=== PATIENT | male | born 1965 | race Caucasian/White ===

== ENCOUNTER 2018-05-18 14:34 | Emergency (ER) | payer OTHER | END 2018-05-18 16:26 | disposition home or self-care (01) | LOC: M ED 14:34 | DX: S56.212A Strain of other flexor muscle, fascia and tendon at forearm level, left arm, initial encounter (principal); X50.0XXD Overexertion from strenuous movement or load, subsequent encounter; Y92.096 Garden or yard of other non-institutional residence as the place of occurrence of the external cause; I10 Essential (primary) hypertension; K21.9 Gastro-esophageal reflux disease without esophagitis; E03.9 Hypothyroidism, unspecified; Z87.891 Personal history of nicotine dependence; Z79.899 Other long term (current) drug therapy | CPT/HCPCS: 73080 ==

== ENCOUNTER 2018-07-14 23:23 | Emergency (ER) | payer OTHER ==
[2018-07-15] MEDS: NS 1,000 ML IV (01:11)
[2018-07-15] MEDS: KETOROLAC 30 MG/ML VIAL (J1885) IV (01:13)
[2018-07-15] MEDS: diphenhydrAMINE INJ 50MG/ML VIAL (J1200) IV (01:13)
[2018-07-15] MEDS: METOCLOPRAMIDE INJ 10MG/2ML VIAL (J2765) IV (01:15)
[2018-07-15 01:25] LABS: CSF RBC < 2 10^3/uL (<2)
[2018-07-15 01:26] LABS: APPEARANCE, CSF CLEAR (CLEAR); COLOR, CSF COLORLESS (COLORLESS); CSF DIFF IF INDICATED? NO (NO); CSF RBC < 2 10^3/uL (<2); CSF TUBE# CELL CNT TUBE 1; CSF WBC 2 /uL (0-10)
[2018-07-15 01:27] LABS: APPEARANCE, CSF CLEAR (CLEAR); COLOR, CSF COLORLESS (COLORLESS); CSF DIFF IF INDICATED? NO (NO); CSF TUBE# CELL CNT TUBE 4; CSF WBC 1 /uL (0-10)
[2018-07-15 01:33] LABS: CSF TUBE# GLU TUBE 2; CSF TUBE# TP TUBE 2; GLUCOSE CSF 65 MG/DL (40-75); TOTAL PROTEIN,CSF 60 MG/DL (15-45)
== END 2018-07-15 02:16 | disposition home or self-care (01) ==
LOC: M ED 23:23
DX: G44.82 Headache associated with sexual activity (principal); I10 Essential (primary) hypertension; E78.00 Pure hypercholesterolemia, unspecified; G47.33 Obstructive sleep apnea (adult) (pediatric); Z79.899 Other long term (current) drug therapy
CPT/HCPCS: J1200

== ENCOUNTER 2019-03-16 17:03 | Emergency (ER) | payer OTHER ==
[~2019-03-16] VITALS: Ht 175.3 cm; Wt 91.2 kg
[~2019-03-16 17:03] MED LIST: B COTAB3 PO; FISH7.5C PO; GEMF600T5 PO; GLUCPOW24 PO; HYDR12.55 PO; LEVO88TA3 PO; LOSA50TA88 PO; NIAS500T23 PO; OMEP20CA3 PO
[2019-03-16] MEDS ORDERED: OMEP40CA2 PO (18:05)
[2019-03-16] MEDS ORDERED: LEVO112T2 PO (18:05)
[2019-03-16] MEDS ORDERED: FLUORESCEIN OPHTH 1 MG STRIP OD ONE (18:30)
[2019-03-16] MEDS ORDERED: TETRACAINE 0.5% OPHTH SOLN 4ML OD ONE (18:30)
[2019-03-16] MEDS ORDERED: ERYT1OIN26 OD (18:39)
[2019-03-16] MEDS ORDERED: ERYTHROMYCIN OPHTH OINT OD ONE (18:45)
[2019-03-16 18:57] VITALS: BP 137/75
== END 2019-03-16 18:58 | disposition home or self-care (01) ==
LOC: M ED 17:03
DX: H00.022 Hordeolum internum right lower eyelid (principal); E03.9 Hypothyroidism, unspecified; Z79.899 Other long term (current) drug therapy

== ENCOUNTER 2019-11-30 18:59 | Emergency (ER) | payer OTHER ==
[~2019-11-30] VITALS: Ht 175.3 cm; Wt 86.4 kg
[~2019-11-30 18:59] MED LIST changes: +ERYT1OIN26 OD; +LEVO112T2 PO; +OMEP1CAP73 PO; -OMEP20CA3 PO; +OMEP40CA97 PO
[2019-11-30] MEDS ORDERED: CELE100C PO (19:11)
[2019-11-30 20:05] LABS: INFLUENZA A AMPLIFICATION POSITIVE (NEGATIVE); INFLUENZA B AMPLIFICATION NEGATIVE (NEGATIVE)
[2019-11-30 20:12] VITALS: BP 133/72
[2019-11-30] MEDS ORDERED: ACETAMINOPHEN 500 MG TAB PO ONE (20:15)
== END 2019-11-30 20:40 | disposition home or self-care (01) ==
LOC: M ED 18:59
DX: J10.1 Influenza due to other identified influenza virus with other respiratory manifestations (principal); K21.9 Gastro-esophageal reflux disease without esophagitis; R51 Headache; E03.9 Hypothyroidism, unspecified; E78.5 Hyperlipidemia, unspecified; G47.33 Obstructive sleep apnea (adult) (pediatric)

== ENCOUNTER → 2021-02-12 | Outpatient (CLI) | payer MEDICARE ==
[~2021-02-12] MED LIST changes: +CELE100C PO; -ERYT1OIN26 OD; +ERYT5OIN25 OD; +FAMO40TA3 PO; +FLUOCRE EX; +LEVO137T2 PO; +PRAV10TA4 PO
== END ==
LOC: M LABSMTC 09:00
PROVIDERS: ATTEND Anesthesiology
DX: Z01.818 Encounter for other preprocedural examination (principal); Z11.52 Encounter for screening for COVID-19

== ENCOUNTER 2021-02-17 09:20 | Day surgery (SDC) | payer OTHER ==
[~2021-02-17] VITALS: Ht 175.3 cm; Wt 92.4 kg
[~2021-02-17 09:20] MED LIST changes: +NS 1,000 ML IV ONE
[2021-02-17] MEDS ORDERED: LIDOCAINE 2% 100MG/5ML SDV (FOR ANES.) As Ordered ONE (11:14)
[2021-02-17] MEDS ORDERED: propofoL 200 MG/20 ML VIAL As Ordered ONE (11:14)
[2021-02-17] MEDS ORDERED: fentaNYL 100 MCG/2 ML INJECTION (J3010) As Ordered ONE (11:14)
--- NOTE | 2021-02-17 11:27 | ROOR ---
Patient Name: Clem Ibrahim Procedure Date: 02/17/2021 11:07 AM Date of : 1965 Age: 56 Room: [facility] Gender: Male Note Status: Finalized Procedure: Upper GI endoscopy Indications: Suspected esophageal reflux Providers: Jhonatan Rasmussen Jr, MD Referring MD: Williams Martin Requesting Provider: Medicines: Propofol per Anesthesia Complications: No immediate complications. Procedure: Pre-Anesthesia Assessment: - Prior to the procedure, a History and Physical was performed, and patient medications and allergies were reviewed. The patient is competent. The risks and benefits of the procedure and the sedation options and risks were discussed with the patient. All questions were answered and informed consent was obtained. Patient identification and proposed procedure were verified by the physician and the nurse in the pre-procedure area and in the procedure room. Mental Status Examination: alert and oriented. Airway Examination: normal oropharyngeal airway and neck mobility. Respiratory Examination: clear to auscultation. CV Examination: normal. ASA Grade Assessment: II - A patient with mild systemic disease. After reviewing the risks and benefits, the patient was deemed in satisfactory condition to undergo the procedure. The anesthesia plan was to use moderate sedation / analgesia (conscious sedation). Immediately prior to administration of medications, the patient was re-assessed for adequacy to receive sedatives. The heart rate, respiratory rate, oxygen saturations, blood pressure, adequacy of pulmonary ventilation, and response to care were monitored throughout the procedure. The physical status of the patient was re-assessed after the procedure. The Endoscope was introduced through the mouth, and advanced to the second part of duodenum. The upper GI endoscopy was accomplished without difficulty. The patient tolerated the procedure well. Findings: The upper third of the esophagus, middle third of the esophagus and lower third of the esophagus were normal. The Z-line was irregular and was found at the gastroesophageal junction. Biopsies were taken with a cold forceps for histology. The gastroesophageal junction, cardia, gastric fundus, gastric body, prepyloric region of the stomach and pylorus were normal. Localized mildly congested mucosa was found in the gastric antrum. Biopsies were taken with a cold forceps for histology. The duodenal bulb, first portion of the duodenum and second portion of the duodenum were normal. Impression: - Normal upper third of esophagus, middle third of esophagus and lower third of esophagus. - Z-line irregular, at the gastroesophageal junction. Biopsied. - Normal gastroesophageal junction, cardia, gastric fundus, gastric body, prepyloric region of the stomach and pylorus. - Congestive gastropathy. Biopsied. - Normal duodenal bulb, first portion of the duodenum and second portion of the duodenum. Recommendation: - Discharge patient to home (ambulatory). - Return to my office at appointment to be scheduled. Procedure Code(s): --- Professional --- 98941, Esophagogastroduodenoscopy, flexible, transoral; with biopsy, single or multiple Diagnosis Code(s): --- Professional --- K22.8, Other specified diseases of esophagus K31.89, Other diseases of stomach and duodenum CPT copyright 2019 [employer]. All rights reserved. The codes documented in this report are preliminary and upon coil winding machines set up mechanic review may be revised to meet current compliance requirements. Jhonatan Rasmussen MD Jhonatan Rasmussen Jr, MD 02/17/2021 11:26:57 AM Electronically signed by Jhonatan Rasmussen Jr, MD Number of Addenda: 0 Note Initiated On: 02/17/2021 11:07 AM Estimated Blood Loss: Estimated blood loss: none.
[2021-02-17 11:45] VITALS: BP 118/77
== END 2021-02-17 11:50 | disposition home or self-care (01) ==
LOC: M OPP 09:20
PROVIDERS: ATTEND Surgery
DX: K22.8 Other specified diseases of esophagus (principal); K31.89 Other diseases of stomach and duodenum; I10 Essential (primary) hypertension; E03.9 Hypothyroidism, unspecified; G47.30 Sleep apnea, unspecified; Z79.899 Other long term (current) drug therapy; Z88.8 Allergy status to other drugs, medicaments and biological substances; Z87.891 Personal history of nicotine dependence
CPT/HCPCS: 43239; 88305; J3010

== ENCOUNTER → 2021-05-24 | Outpatient (CLI) | payer OTHER ==
[~2021-05-24] MED LIST changes: -NS 1,000 ML IV ONE; +OMEP40CA4 PO; -OMEP40CA97 PO; +PROHANCE 279.3MG/ML 15ML VIAL As Ordered ONE; +PROHANCE 279.3MG/ML 5ML VIAL As Ordered ONE
--- NOTE | 2021-05-24 20:00 | REPVR ---
PROCEDURE INFORMATION: Exam: MR Lumbar Spine Without and With Contrast Exam date and time: 05/24/2021 7:14 PM Age: 56 years old Clinical indication: Low back pain TECHNIQUE: Imaging protocol: Multiplanar magnetic resonance images of the lumbar spine without and with intravenous contrast. Contrast material: PROHANCE; Contrast volume: 18 ml; Contrast route: INTRAVENOUS (IV); COMPARISON: No relevant prior studies available. FINDINGS: Vertebral body height and AP alignment is preserved. There is multilevel Schmorl's node formation. Multilevel disc desiccation. There is degenerative endplate signal. No evidence of discitis/osteomyelitis. Conus medullaris terminates L1. No epidural fluid collection. No pathologic intrathecal enhancement. L1-L2: Minimal disc bulge without significant central or foraminal stenosis. L2-L3: Mild disc bulge and mild bilateral facet joint arthropathy. No significant central or foraminal stenosis. L3-L4: Mild disc bulge and mild bilateral facet joint arthropathy. No significant central or foraminal stenosis. L4-L5: Mild disc bulge and mild bilateral facet joint arthropathy. No significant central or foraminal stenosis. L5-S1: [id number] bilateral facet joint arthropathy without significant central or foraminal compromise. IMPRESSION: 1. No acute abnormality involving the lumbar spine. 2. Degenerative findings as above without significant central canal compromise. Electronically signed by: Andrew Lanza On 05/24/2021 20:00:00 PM
== END ==
LOC: M RAD 17:04
PROVIDERS: ATTEND Nurse Practitioner Family
DX: M54.5 Low back pain (principal)
CPT/HCPCS: 72158; A9576

== ENCOUNTER → 2021-07-16 | Outpatient (CLI) | payer OTHER ==
[~2021-07-16] MED LIST changes: +LOPI600T PO; -PROHANCE 279.3MG/ML 15ML VIAL As Ordered ONE; -PROHANCE 279.3MG/ML 5ML VIAL As Ordered ONE; +VITATAB73 PO
== END ==
LOC: M LABSMTC 09:21
PROVIDERS: ATTEND Anesthesiology
DX: Z01.812 Encounter for preprocedural laboratory examination (principal); Z20.822 Contact with and (suspected) exposure to COVID-19

== ENCOUNTER 2021-07-21 09:57 | Day surgery (SDC) | payer OTHER ==
[~2021-07-21] VITALS: Ht 175.3 cm; Wt 93.6 kg
[~2021-07-21 09:57] MED LIST changes: +LIDOCAINE 2% 100MG/5ML SDV (FOR ANES.) As Ordered ONE; +NS 1,000 ML IV ONE; +propofoL 200 MG/20 ML VIAL As Ordered ONE
--- OUTSIDE RECORDS SUMMARY | 2021-07-21 10:01 | CCD ---
Author Author [facility] Organization [facility] Address Unknown Phone Unavailable Care Team Providers Care Library Technology Instructor Name Role Phone Crook, L Mel RPA Unavailable Unavailable Crook, L Mel RPA Unavailable Unavailable Crook, L Mel RPA Unavailable Unavailable Crook, L Mel RPA Unavailable Unavailable Crook, L Mel RPA Unavailable Unavailable Crook, L Mel RPA Unavailable Unavailable Crook, L Mel RPA Unavailable Unavailable Crook, L Mel RPA Unavailable Unavailable Crook, L Mel RPA Unavailable Unavailable Crook, L Mel RPA Unavailable Unavailable Crook, L Mel RPA Unavailable Unavailable Crook, L Mel RPA Unavailable Unavailable Crook, L Mel RPA Unavailable Unavailable Crook, L Mel RPA Unavailable Unavailable Crook, L Mel RPA Unavailable Unavailable Crook, L Mel RPA Unavailable Unavailable Crook, L Mel RPA Unavailable Unavailable Crook, L Mel RPA Unavailable Unavailable Crook, L Mel RPA Unavailable Unavailable Crook, L Mel RPA Unavailable Unavailable Crook, L Mel RPA Unavailable Unavailable Crook, L Mel RPA Unavailable Unavailable Crook, L Mel RPA Unavailable Unavailable Crook, L Mel RPA Unavailable Unavailable Crook, L Mel RPA Unavailable Unavailable Crook, L Mel RPA Unavailable Unavailable Crook, L Mel RPA Unavailable Unavailable Crook, L Mel RPA Unavailable Unavailable Crook, L Mel RPA Unavailable Unavailable Crook, L Mel RPA Unavailable Unavailable Crook, L Mel RPA Unavailable Unavailable Crook, L Mel RPA Unavailable Unavailable Bart Rasmussen JR, MD Unavailable Unavailable Bart Rasmussen JR, MD Unavailable Unavailable Bart Rasmussen JR, MD Unavailable Unavailable Bart Rasmussen JR, MD Unavailable Unavailable Bart Rasmussen JR, MD Unavailable Unavailable Bart Rasmussen JR, MD Unavailable Unavailable Bart Rasmussen JR, MD Unavailable Unavailable Bart Rasmussen JR, MD Unavailable Unavailable Bart Rasmussen JR, MD Unavailable Unavailable Bart Rasmussen JR, MD Unavailable Unavailable Bart Rasmussen JR, MD Unavailable Unavailable Bart Rasmussen JR, MD Unavailable Unavailable Bart Rasmussen JR, MD Unavailable Unavailable Bart Rasmussen JR, MD Unavailable Unavailable Bart Rasmussen JR, MD Unavailable Unavailable Bart Rasmussen JR, MD Unavailable Unavailable Bart Rasmussen JR, MD Unavailable Unavailable Bart Rasmussen JR, MD Unavailable Unavailable Bart Rasmussen JR, MD Unavailable Unavailable Bart Rasmussen JR, MD Unavailable Unavailable Bart Rasmussen JR, MD Unavailable Unavailable Bart Rasmussen JR, MD Unavailable Unavailable Bart Rasmussen JR, MD Unavailable Unavailable Bart Rasmussen JR, MD Unavailable Unavailable Bart Rasmussen JR, MD Unavailable Unavailable Bart Rasmussen JR, MD Unavailable Unavailable Bart Rasmussen JR, MD Unavailable Unavailable Bart Rasmussen JR, MD Unavailable Unavailable Bart Rasmussen JR, MD Unavailable Unavailable Bart Rasmussen JR, MD Unavailable Unavailable Bart Rasmussen JR, MD Unavailable Unavailable Bart Rasmussen JR, MD Unavailable Unavailable Bart Rasmussen JR, MD Unavailable Unavailable Bart Rasmussen JR, MD Unavailable Unavailable Bart Rasmussen JR, MD Unavailable Unavailable Bart Rasmussen JR, MD Unavailable Unavailable Bart Rasmussen JR, MD Unavailable Unavailable Bart Rasmussen JR, MD Unavailable Unavailable Bart Rasmussen JR, MD Unavailable Unavailable Bart Rasmussen JR, MD Unavailable Unavailable Bart Rasmussen JR, MD Unavailable Unavailable Bart Rasmussen JR, MD Unavailable Unavailable Bart Rasmussen JR, MD Unavailable Unavailable Bart Rasmussen JR, MD Unavailable Unavailable Bart Rasmussen JR, MD Unavailable Unavailable Bart Rasmussen JR, MD Unavailable Unavailable Bart Rasmussen JR, MD Unavailable Unavailable Bart Rasmussen JR, MD Unavailable Unavailable Bart Rasmussen JR, MD Unavailable Unavailable Bart Rasmussen JR, MD Unavailable Unavailable Bart Rasmussen JR, MD Unavailable Unavailable Bart Rasmussen JR, MD Unavailable Unavailable Bart Rasmussen JR, MD Unavailable Unavailable Bart Rasmussen JR, MD Unavailable Unavailable Re-disclosure Warning The records that you are about to access may contain information from federally-assisted alcohol or drug abuse programs. If such information is present, then the following federally mandated warning applies: This information has been disclosed to you from records protected by federal confidentiality rules (42 CFR part 2). The federal rules prohibit you from making any further disclosure of this information unless further disclosure is expressly permitted by the written consent of the person to whom it pertains or as otherwise permitted by 42 CFR part 2. A general authorization for the release of medical or other information is NOT sufficient for this purpose. The Federal rules restrict any use of the information to criminally investigate or prosecute any alcohol or drug abuse patient.The records that you are about to access may contain highly sensitive health information, the redisclosure of which is protected by Article 27-F of the [facility] Public Health law. If you continue you may have access to information: Regarding HIV / AIDS; Provided by facilities licensed or operated by the [facility] Office of Mental Health; or Provided by the [facility] Office for People With Developmental Disabilities. If such information is present, then the following [facility] mandated warning applies: This information has been disclosed to you from confidential records which are protected by state law. State law prohibits you from making any further disclosure of this information without the specific written consent of the person to whom it pertains, or as otherwise permitted by law. Any unauthorized further disclosure in violation of state law may result in a fine or chcf sentence or both. A general authorization for the release of medical or other information is NOT sufficient authorization for further disc losure. Encounters Encounter Providers Location Date Indications Data Source(s ) Outpatient Attender: Mel Frank/Zulma/Brennan/R eindl 03/03/2021 11:15:00 AM EDT [facility] ([facility]) Outpatient Attender: Jhonatan Frank/Zulma/Brennan/Srinivasa dl 12/29/2020 01:00:00 PM EDT [facility] ([facility]) Medications Medication Brand Name Start Date Product Form Dose Route Admi nistrative Instructions Pharmacy Instructions Status Indications Reaction Description Data Source(s) Suprep Bowel Prep Kit Suprep Bowel Prep Kit 06/09/2021 12:00:00 AM EDT active [facility] ([facility] ) Bisacodyl 5 MG Delayed Release Oral Tablet [Dulcolax] Dulcol ax 06/09/2021 12:00:00 AM EDT ORAL active [facility] ([facility]) Omeprazole 40 MG Delayed Release Oral Capsule Omeprazole 12/29/2020 12:00:00 AM EDT ORAL completed [facility] ([facility]) Famotidine 40 MG Oral Tablet [Pepcid] Pepcid 12/29/2020 12:00:00 AM EDT ORAL completed [facility] ([facility]) Insurance Providers Payer name Policy type / Coverage type Policy ID Covered democrat ID Covered democrat's relationship to carias Policy Carias Plan Information 'S ADMINISTRATION [id number] SP [id number] [employer] [place] [employer] [id number] SP [id number] [place] [employer] [employer] [id number] SP [id number] [address] [facility] [id number] SP [id number] [employer] [id number] S [id number] [facility] [id number] SP [id number] [facility] ACTIVE DUTY [id number] SP [id number] Problems, Conditions, and Diagnoses No Information Surgeries/Procedures Procedure Description Date Indications Data Source(s) OFFICE OUTPATIENT VISIT 15 MINUTES 03/03/2021 12:00:00 AM EDT [facility] Endoscopy Upper GI Biopsy 2021 12:00:00 AM EDT [facility] ([facility]) OFFICE OUTPATIENT NEW 45 MINUTES 12/29/2020 12:00:00 A EDT [facility]) Results ID Date Data Source [id number] 07/16/2021 09:15:00 AM EDT [facility] Name Value Range Interpretation Code Description Data Venecia rce(s) Supporting Document(s) SARS-CoV-2 (COVID-19) RNA [Presence] in Respiratory specimen by [facility] with probe detection Not Detected [facility] This lab was ordered by [facility] and reported by [employer] ID Date Data Source [id number] 2021 11:20:00 AM EDT [facility] ) Name Value Range Interpretation Code Description Data Venecia rce(s) Supporting Document(s) Surgical pathology study Laboratory test result [facility] ([facility], ) <content>FINAL DIAGNOSIS</content>
< content></content>
<content>A - Stomach, biopsy:</content>
<content>Gastric mucosa with no significant pathologic changes.</content>
<content>No evidence for H. pylori-like organisms on H&E stain.</content>
<content></content>
<content>B - GE junction, biopsy:</content>
<content>Junctional mucosa with intestinal metaplasia and chronic</content>
<content>inflammation.</content>
<content>No evidence for dysplasia.</content>
<content>02/18/2021 - 1239</content>
<content> </content>
<content>CLINICAL DIAGNOSIS</content>
<content></content>
<content>Reflux</content>
<c ontent>2021 - 1517</content>
<content></content>
<content>GROSS DIAGNOSIS</content>
<content></content>
<content>A - Received in formalin labeled "gastric biopsy" and consists of one</content>
<content> fragment of quiroz tissue 0.3 x 0.3 x 0.2 cm. All in one.</content>
<content></content>
<content>B - Received in formalin labeled "GE junction biopsy" and consists of</content>
<content>three fragments of quiroz tissue 0.3 x 0.3 x 0.3 cm. in aggregate. All in</content>
<content>one.</content>
<content>- SV</content>
<content>02/18/2021 - 1240</content>
<content></content>
<content>Signed EDYTA MAURER MD 02/18/2021 1333</content>
<content></content> ID Date Data Source [id number] 02/12/2021 09:05:00 AM EDT [facility] Name Value Range Interpretation Code Description Data Venecia rce(s) Supporting Document(s) SARS-CoV-2 (COVID-19) RNA [Presence] in Respiratory specimen by [facility] with probe detection Not Detected [facility] This lab was ordered by [facility] and reported by [employer]. Procedure Social History No Information Vital Signs ID Date Data Source UNK Name Value Range Interpretation Code Description Data Source(s) Systolic blood pressure 128 mm[Hg] 128 mm[Hg] [facility] Diastolic blood pressure 78 mm[Hg] 78 mm[Hg] [facility] ([facility]) Body height 69 [in_i] 69 [in_i] [facility] ([facility]) 5'9" Body weight 205.00 [lb_av] 205.00 [lb_av] [facility] ([facility]) Body mass index (BMI) [Ratio] 30.3 kg/m2 30.3 k g/m2 [facility] ([facility]) [place] body weight 160 [lb_av] 160 [lb_av] [facility] ([facility]) Body weight 92.988 kg 92.988 kg [facility] ([facility]) Body surface area Derived from formula 2.09 m2 2.09 m2 [facility] ([facility]) Body weight 94.065 kg 94.065 kg [facility] ([facility]) Body surface area Derived from formula 2.10 m2 2.10 m2 [facility] ([facility]) Body height 69 [in_i] 69 [in_i] [facility] ([facility]) 5'9" Body weight 207.38 [lb_av] 207.38 [lb_av] [facility] ([facility]) Body mass index (BMI) [Ratio] 30.6 kg/m2 30.6 k g/m2 [facility] ([facility]) [place] body weight 160 [lb_av] 160 [lb_av] [facility] ([facility]) Body weight 94.065 kg 94.065 kg [facility] ([facility]) Body surface area Derived from formula 2.10 m2 2.10 m2 [facility] ([facility]) Diastolic blood pressure 78 mm[Hg] 78 mm[Hg] [facility] ([facility]) Systolic blood pressure 124 mm[Hg] 124 mm[Hg] M [facility] ([facility]) Heart rate 62 /min 62 /min [facility] ([facility]) Body height 69 [in_i] 69 [in_i] [facility] ([facility]) 5'9" Body weight 207.38 [lb_av] 207.38 [lb_av] [facility] ([facility]) Body mass index (BMI) [Ratio] 30.6 kg/m2 30.6 k g/m2 [facility] ([facility]) [place] body weight 160 [lb_av] 160 [lb_av] [facility] ([facility]) Body surface area Derived from formula 2.10 m2 2.10 m2 [facility] ([facility]) Systolic blood pressure 180 mm[Hg] 180 mm[Hg] [facility] Diastolic blood pressure 89 mm[Hg] 89 mm[Hg] [facility] ([facility]) Body height 69 [in_i] 69 [in_i] [facility] ([facility]) 5'9" Body weight 208.12 [lb_av] 208.12 [lb_av] [facility] ([facility]) Body mass index (BMI) [Ratio] 30.7 kg/m2 30.7 k g/m2 [facility] ([facility]) [place] body weight 160 [lb_av] 160 [lb_av] [facility] ([facility]) Body weight 94.406 kg 94.406 kg [facility] ([facility])
--- OUTSIDE RECORDS SUMMARY | 2021-07-21 10:01 | CCD | Continuity of Care Document ---
Author Author Clem BREEN [facility] Organization Unknown Address [address] [place] [address], [address] [place] [address] Phone [phone] Care Team Providers Care Broke Worker Name Role Phone Bethany. MERLYN Shields AUTM [phone] Williams Martin M.D. AUTM [phone] Problems Description No Active Problems Social History Type Date Description Comments Sex Unknown ETOH Use Denies alcohol use Tobacco Use Start: Unknown End: Unknown Patient is a former smoker Recreational Drug Use Denies Drug Use Allergies, Adverse Reactions, Alerts Active Allergies Criticality Reaction | Severity Comments Date Atorvastatin Unable to assess criticality Itching, Rash 12/29/2020 Medications Active Medications SIG Qnty Indications Ordering Provide r Date Suprep Bowel Prep Kit 17.5-3.13-1.6GM/177ML Solution take per doctor's bowel prep instructions. 354ml Z12.1 1 Case Sheikh MD 06/09/[address] take 4 tabs by mouth prior to procedure per instructions. 4tabs Z12.11 Case Sheikh MD 06/09/[address] 1 cap qd Unknown Pravastatin Sodium 20mg Tablets 1/2tab qd Unknown Hydrochlorothiazide 25mg Tablets 1/2tab qd Unknown Losartan Potassium 50mg Tablets 1tab qd Unknown Levothyroxine Sodium 137mcg Tablet s 1tab qd Unknown Famotidine 40mg Tablets 1tab qd Unknown Gemfibrozil 600mg Tablets 1ta b bid Unknown Fish Oil 500mg Capsules 2 by mouth every day Unknown Vitamin B100 Complex Tablets Daily Unknown History Medications Pepcid 40mg Tablets 1 by mouth Q Day 90tabs Jhonatan Rasmussen JR, MD 12/29/2020 - 05/[address] 1 by mouth bid 180caps Yvon Hartmann M.D. 12/29/2020 - 05/16/2021 Immunizations Description No Information Available Vital Signs Date Vital Result Comment 06/09/2021 2:18pm BP Systolic 128 mmHg BP Diastolic 78 mmHg Height 69 inches 5'9" Weight 205.00 lb BMI (Body Mass Index) 30.3 kg/m2 [place] Body Weight 160 lb Weight 92.988 kg BSA (Body Surface Area) 2.09 m2 03/03/2021 11:18am BP Systolic 124 mmHg BP Diastolic 78 mmHg Heart Rate 62 /min Height 69 inches 5'9" Weight 207.38 lb BMI (Body Mass Index) 30.6 kg/m2 [place] Body Weight 160 lb Weight 94.065 kg BSA (Body Surface Area) 2.10 m2 Results Test Acquired Date Facility Test Result H/L Range Note Laboratory test finding 2021 [facility] Main Lab [address] [place] [address] [phone] Pathology Request For Service (SEE NOTE) 1 1 FINAL DIAGNOSIS A - Stomach, biopsy: Gastric mucosa with no significant pathologic changes. No evidence for H. pylori-like organisms on H&E stain. B - GE junction, biopsy: Junctional mucosa with intestinal metaplasia and chronic inflammation. No evidence for dysplasia. 02/18/2021 - 1240 CLINICAL DIAGNOSIS Reflux 2021 - 1518 GROSS DIAGNOSIS A - Received in formalin labeled "gastric biopsy" and consists of one fragment of quiroz tissue 0.3 x 0.3 x 0.2 cm. All in one. B - Received in formalin labeled "GE junction biopsy" and consists of three fragments of quiroz tissue 0.3 x 0.3 x 0.3 cm. in aggregate. All in one. -SV 02/18/2021 - 1240 Signed EDYTA MAURER MD 02/18/2021 1333 Procedures Date Code Description Status 03/03/2021 92027 Office/Outpatient Established Lo w MDM 20-29 Min Completed 2021 51735 Endoscopy Upper GI Biopsy Comple dre 12/29/2020 34111 Office/Outpatient New Moderate M DM 45-59 Minutes Completed Medical Devices Description No Information Available Encounters Type Date Location Provider Dx Diagnosis Office Visit 03/03/2021 11:15a [facility] GALO Shore K22.70 Alves's esophagus without dysplasia K21.9 Gastro-esophageal reflux dis ease without esophagitis Office Visit 12/29/2020 1:00p [facility] Jhonatan garcia JR, MD K21.9 Gastro-esophageal reflux disease without esophagitis Assessments Date Code Description Provider 06/09/2021 Z12.11 Encounter for screening for anselmo gnant neoplasm of colon Merna JacksonLILIAN salmeron 06/09/2021 Z86.010 Personal history of colonic poly ps Merna Bolton LILIAN Breen 06/09/2021 Z80.0 Family history of malignant neop lasm of digestive organs Merna A LILIAN Breen 03/03/2021 K22.70 Alves's esophagus without dysp lasia GALO Borrero 03/03/2021 K21.9 Gastro-esophageal reflux disease without esophagitis GALO Borrero 2021 K22.8 Other specified diseases of esop hagus Jhonatan Rasmussen JR, MD 2021 K31.89 Other diseases of stomach and du odenum Jhonatan Rasmussen JR, MD 12/29/2020 K21.9 Gastro-esophageal reflux disease without esophagitis Jhonatan Rasmussen JR, MD Plan of Treatment 06/09/2021 - Merna BakerLILIAN ojeda* Z12.11 Encounter for screening for malignant neoplasm of colon * Z86.010 Personal history of colonic polyps * Z80.0 Family history of malignant neoplasm of digestive organs * * New Medication:* Suprep Bowel Prep Kit 17.5-3.13-1.6 GM/177ML * Dulcolax 5 mg * New Orders:* Colonoscopy, Ordered: 06/09/21 * Comments:* Will arrange for colonoscopy. Reviewed risks and benefits of the procedure, as well as other options, with the patient. Bowel prep procedure was discussed with patient, as well as risks and side effects associated with the bowel prep. Patient verbalized understanding of all of the above and is in agreement to proceed. Patient will seek medical attention for any acute changes. Will monitor. * Follow up:* As scheduled, sooner if needed. Functional Status Description No Information Available Mental Status Description No Information Available Referrals Refer to Reason for Referral Status Appt Date Musa Vargas M.D. [id number] of colon/long hx of gerd Scheduled 06/09/2021 [facility] [address] [facility], [address] [address] [phone] Jhonatan Rasmussen JR, MD Closed [address] [place] [address] [phone] Jhonatan Rasmussen JR, MD GERD/EGD Closed [address] [address] [phone]
--- OUTSIDE RECORDS SUMMARY | 2021-07-21 10:01 | CCD | Continuity of Care Document ---
Author Author Clem ABDULLAHI [facility] Organization Unknown Address [address] [place] [address], [address] [place] [address] Phone [phone] Care Team Providers Care Appraiser Art Name Role Phone Bethany. MERLYN Shields AUTM [phone] Williams Martin M.D. AUTM [phone] Problems Description No Active Problems Social History [...] lb BMI (Body Mass Index) 30.3 kg/m2 [place] Body Weight 160 lb Weight 92.988 kg BSA (Body Surface Area) 2.09 m2 03/03/2021 11:18am BP Systolic 124 mmHg BP Diastolic 78 mmHg Heart Rate 62 /min Height 69 inches 5'9" Weight 207.38 lb BMI (Body Mass Index) 30.6 kg/m2 [place] Body Weight 160 lb Weight 94.065 kg BSA (Body Surface Area) 2.10 m2 Results Test Acquired Date Facility Test Result H/L Range Note Laboratory test finding 2021 [facility] Main Lab [address] [place] [address] [phone] Pathology Request For Service (SEE NOTE) 1 [...] 1333 Procedures Date Code Description Status 03/03/2021 89668 Office/Outpatient Established Lo w MDM 20-29 Min Completed 2021 28669 Endoscopy Upper GI Biopsy Comple dre 12/29/2020 55999 Office/Outpatient New Moderate M DM 45-59 Minutes Completed Medical Devices Description No Information Available Encounters Type Date Location Provider Dx Diagnosis Office Visit 03/03/2021 11:15a [facility] GALO Shore K22.70 Alves's esophagus without dysplasia K21.9 Gastro-esophageal reflux dis ease without esophagitis Office Visit 12/29/2020 1:00p [facility] Jhonatan garcia JR, MD K21.9 Gastro-esophageal reflux disease without esophagitis Assessments Date Code Description Provider 06/09/2021 Z12.11 Encounter for screening for anselmo gnant neoplasm of colon Merna Bolton LILIAN Abdullahi 06/09/2021 Z86.010 Personal history of colonic poly ps Merna A LILIAN Abdullahi 06/09/2021 Z80.0 Family history of malignant neop lasm of digestive organs LILIAN Romano 03/03/2021 K22.70 Alves's esophagus without dysp lasia GALO Borrero 03/03/2021 K21.9 Gastro-esophageal reflux disease without esophagitis GALO Borrero 2021 K22.8 Other specified diseases of esop hagus Jhonatan Rasmussen JR, MD 2021 K31.89 Other diseases of stomach and du odenum Jhonatan Rasmussen JR, MD 12/29/2020 K21.9 Gastro-esophageal reflux disease without esophagitis Jhonatan Rasmussen JR, MD Plan of Treatment Future Appointment(s):* 07/21/2021 12:20 pm - Musa Vargas M.D. at [facility] 06/09/2021 - Merna Bolton LILIAN Abdullahi* Z12.11 Encounter for screening for malignant neoplasm [...] Description No Information Available Referrals Refer to Dr Reason for Referral Status Appt Date Musa Vargas M.D. [id number] of colon/long hx of gerd Scheduled 06/09/2021 [facility] [address] [facility], [address] [place] [address] [phone] Jhonatan Rasmussen JR, MD Closed 0 [address] [facility] [address] [place] [id number] [phone]
--- NOTE | 2021-07-21 11:54 | ROOR ---
Patient Name: Clem Ibrahim Procedure Date: 07/21/2021 11:27 AM Date of : 1965 Age: 56 Room: [facility] Gender: Male Note Status: Finalized Procedure: Colonoscopy Indications: High risk colon cancer surveillance: Personal history of colonic polyps Providers: Musa Vargas MD Referring MD: Williams Martin Requesting Provider: Medicines: Monitored Anesthesia Care Complications: No immediate complications. Procedure: Pre-Anesthesia Assessment: - Prior to the procedure, a History and Physical was performed, and patient medications and allergies were reviewed. The patient is competent. The risks and benefits of the procedure and the sedation options and risks were discussed with the patient. All questions were answered and informed consent was obtained. Patient identification and proposed procedure were verified by the physician, the nurse and the anesthesiologist in the procedure room. Mental Status Examination: alert and oriented. Airway Examination: normal oropharyngeal airway and neck mobility. Respiratory Examination: clear to auscultation. CV Examination: normal. Prophylactic Antibiotics: The patient does not require prophylactic antibiotics. Prior Anticoagulants: The patient has taken no previous anticoagulant or antiplatelet agents. ASA Grade Assessment: II - A patient with mild systemic disease. After reviewing the risks and benefits, the patient was deemed in satisfactory condition to undergo the procedure. The anesthesia plan was to use monitored anesthesia care (MAC). Immediately prior to administration of medications, the patient was re-assessed for adequacy to receive sedatives. The heart rate, respiratory rate, oxygen saturations, blood pressure, adequacy of pulmonary ventilation, and response to care were monitored throughout the procedure. The physical status of the patient was re-assessed after the procedure. The Colonoscope was introduced through the anus and advanced to the terminal ileum, with identification of the appendiceal orifice and IC valve. The colonoscopy was performed without difficulty. The patient tolerated the procedure well. The quality of the bowel preparation was good. The terminal ileum, ileocecal valve, appendiceal orifice, and rectum were photographed. Scope insertion time was 1 minute. Scope withdrawal time was 9 minutes. The total duration of the procedure was 10 minutes. Findings: The perianal and digital rectal examinations were normal. The terminal ileum appeared normal. A few small-mouthed diverticula were found in the sigmoid colon. There was no evidence of diverticular bleeding. Non-bleeding external and internal hemorrhoids were found during retroflexion. The hemorrhoids were small. No other significant abnormalities were identified in a careful examination of the remainder of the colon. Impression: - The examined portion of the ileum was normal. - Mild diverticulosis in the sigmoid colon. There was no evidence of diverticular bleeding. - Non-bleeding external and internal hemorrhoids. - No specimens collected. Recommendation: - Patient has a contact number available for emergencies. The signs and symptoms of potential delayed complications were discussed with the patient. Return to normal activities tomorrow. Written discharge instructions were provided to the patient. - High fiber diet. - Continue present medications. - Repeat colonoscopy in 5 years for screening purposes, due to family history of colon cancer. and due to personal history of colon polyps in past Colonoscopy. - Return to GI clinic in 5 years. - Return to primary care physician. Procedure Code(s): --- Professional --- 91381, Colonoscopy, flexible; diagnostic, including collection of specimen(s) by brushing or washing, when performed (separate procedure) Diagnosis Code(s): --- Professional --- Z86.010, Personal history of colonic polyps K64.8, Other hemorrhoids K57.30, Diverticulosis of large intestine without perforation or abscess without bleeding CPT copyright 2019 [employer]. All rights reserved. The codes documented in this report are preliminary and upon recreation instructor review may be revised to meet current compliance requirements. Musa Vargas MD Musa Vargas MD 07/21/2021 11:53:50 AM Electronically signed by Musa Vargas MD Number of Addenda: 0 Note Initiated On: 07/21/2021 11:27 AM Estimated Blood Loss: Estimated blood loss: none.
[2021-07-21 12:10] VITALS: BP 132/83
== END 2021-07-21 12:18 | disposition home or self-care (01) ==
LOC: M OPP 09:57
PROVIDERS: ATTEND Internal Medicine Gastroenterology
DX: Z12.11 Encounter for screening for malignant neoplasm of colon (principal); Z86.010 Personal history of colon polyps; Z80.0 Family history of malignant neoplasm of digestive organs; K57.30 Diverticulosis of large intestine without perforation or abscess without bleeding; K64.8 Other hemorrhoids; Z79.899 Other long term (current) drug therapy; Z88.8 Allergy status to other drugs, medicaments and biological substances; Z80.8 Family history of malignant neoplasm of other organs or systems; Z80.41 Family history of malignant neoplasm of ovary; Z80.42 Family history of malignant neoplasm of prostate; Z86.11 Personal history of tuberculosis

== ENCOUNTER → 2022-12-07 | Outpatient (CLI) | payer OTHER ==
[~2022-12-07] MED LIST changes: +FISH10005 PO; -FISH7.5C PO; -LIDOCAINE 2% 100MG/5ML SDV (FOR ANES.) As Ordered ONE; +LOSA50TA28 PO; -LOSA50TA88 PO; -NS 1,000 ML IV ONE; -propofoL 200 MG/20 ML VIAL As Ordered ONE
== END ==
LOC: M PLAIMG 12:40
PROVIDERS: ATTEND Nurse Practitioner Family
DX: M25.522 Pain in left elbow (principal)

== ENCOUNTER 2024-10-28 08:55 | Emergency (ER) | payer OTHER ==
[~2024-10-28] VITALS: Ht 175.3 cm; Wt 94.2 kg
[~2024-10-28 08:55] MED LIST changes: +FLUOCRE TOP; +FLUT1BLS2 IH; +LEVO150T7 PO; +NAPR-1405 PO; +PRAV40TA2 PO; +THIA100C PO; +VENTAER INH
[2024-10-28] MEDS: KETOROLAC 30 MG/ML 1ML VIAL IM ONE (12:30)
[2024-10-28 12:56] VITALS: BP 131/78; TEMP 97.6; O2SAT 97
== END 2024-10-28 13:22 | disposition home or self-care (01) ==
LOC: M ED 08:55
DX: S00.93XA Contusion of unspecified part of head, initial encounter (principal); S50.12XA Contusion of left forearm, initial encounter; S40.011A Contusion of right shoulder, initial encounter; Y92.9 Unspecified place or not applicable; Y93.9 Activity, unspecified; Y99.9 Unspecified external cause status; W00.0XXA Fall on same level due to ice and snow, initial encounter; I10 Essential (primary) hypertension; K21.9 Gastro-esophageal reflux disease without esophagitis; G47.33 Obstructive sleep apnea (adult) (pediatric); Z88.8 Allergy status to other drugs, medicaments and biological substances; Z79.51 Long term (current) use of inhaled steroids; Z79.899 Other long term (current) drug therapy
CPT/HCPCS: 70450; 72125; 73030; 73090; 96372; 99283; J1885

== ENCOUNTER → 2024-11-04 | Outpatient (CLI) | payer OTHER | LOC: M RAD 12:20 | PROVIDERS: ATTEND Nurse Practitioner Family | DX: R41.841 Cognitive communication deficit (principal) ==

== ENCOUNTER 2024-11-06 07:32 | Day surgery (SDC) | payer OTHER ==
[~2024-11-06] VITALS: Ht 175.3 cm; Wt 93.1 kg
[2024-11-06] MEDS ORDERED: propofoL 200 MG/20 ML VIAL As Ordered ONE (08:24)
[2024-11-06] MEDS ORDERED: LIDOCAINE 2% 100MG/5ML SDV (FOR ANES.) As Ordered ONE (08:24)
[2024-11-06 08:52] VITALS: TEMP 97.8
[2024-11-06 09:05] VITALS: BP 137/60; O2SAT 96
== END 2024-11-06 09:14 | disposition home or self-care (01) ==
LOC: M OPP 07:32
PROVIDERS: ATTEND Surgery
DX: Z86.0100 Personal history of colon polyps, unspecified (principal); K22.70 Barrett's esophagus without dysplasia; K44.9 Diaphragmatic hernia without obstruction or gangrene; K30 Functional dyspepsia; G47.30 Sleep apnea, unspecified; Z88.8 Allergy status to other drugs, medicaments and biological substances; Z79.51 Long term (current) use of inhaled steroids; Z79.899 Other long term (current) drug therapy; J45.909 Unspecified asthma, uncomplicated; Z87.891 Personal history of nicotine dependence